=== PATIENT | female | born 1995 | race Caucasian/White ===

== ENCOUNTER 2021-03-15 00:17 | Emergency (ER) | payer OTHER ==
[2021-03-15] MEDS ORDERED: Acetaminophen/HYDROcodone 325-5 MG Tab PO ONE (00:18)
--- NOTE | 2021-03-15 00:29 | EDM.PDOC ---
ED HPI GENERAL MEDICAL PROBLEM - General Stated Complaint: STOMACH PAIN Time Seen by Provider: 03/15/21 00:29 Source of Information: Reports: Patient History Limitations: Reports: No Limitations - History of Present Illness INITIAL COMMENTS - FREE TEXT/NARRATIVE: Patient comes emergency department today with complaints of abdominal pain. This patient who has not had any surgeries in her abdomen in the past has had epigastric bandlike abdominal pain since Saturday. She had a rather hard bowel movement on Saturday. She has been taking some stool softeners and laxatives and has had multiple bowel movements including about 5 today. She is still passing gas although she still has this pain primarily in the epigastric and the right upper quadrant the kind of comes and goes but she does notice that it gets worse when she eats. She got very nauseated and had more pain after eating tonight and actually made herself vomit to see if it would help her pain. She has had no hematochezia the last couple of days. She has no hematuria dysuria or urinary frequency. No black or tarry stools. She has not had any indigestion or bloating sensation the past few days. Her pain comes and goes on its own and seems to be worse when she eats. Abdomen Pain Score (Numeric/FACES): 4 - Related Data Allergies Allergy/AdvReac Type Severity Reaction Status Date / Time sulfamethoxazole Allergy Other Verified 03/15/21 00:34 [From Bactrim] trimethoprim [From Bactrim] Allergy Other Verified 03/15/21 00:34 ED ROS GENERAL - Review of Systems Review Of Systems: Comprehensive ROS is negative, except as noted in HPI. ED EXAM, GI/ABD - Physical Exam Exam: See Below Exam Limited By: No Limitations General Appearance: Alert, WD/WN, No Apparent Distress Neck: Normal Inspection Respiratory/Chest: No Respiratory Distress, Lungs Clear, Normal Breath Sounds, No Accessory Muscle Use, Chest Non-Tender Cardiovascular: Normal Peripheral Pulses, Regular Rate, Rhythm GI/Abdominal Exam: Normal Bowel Sounds, Soft, Guarding (She has guarding to the right upper quadrant with a positive Powell sign.), Other (Negative McBurney sign. No distention of the abdomen. Soft.). No: Rigid, Rebound, Hepatomegaly, Splenomegaly Back Exam: Normal Inspection, Full Range of Motion Extremities: Normal Inspection, Normal Range of Motion, Non-Tender, No Pedal Edema, Normal Capillary Refill Neurological: Alert, Oriented, Normal Cognition, No Motor/Sensory Deficits Psychiatric: Normal Affect, Normal Mood Skin Exam: Warm, Dry, Intact, Normal Color, No Rash Course - Vital Signs Last Recorded V/S: Last Vital Signs Temp 97.2 F 03/15/21 00:32 Pulse 92 03/15/21 01:22 Resp 18 03/15/21 01:22 BP 129/87 03/15/21 01:22 Pulse Ox 98 03/15/21 01:22 - Orders/Labs/Meds Orders: Active Orders 24 hr Category Date Time Status Peripheral IV Care [RC] . DIRECTED Care 03/15/21 00:35 Active Sodium Chloride 0.9% [Saline Flush] Med 03/15/21 00:35 Active 10 ml FLUSH ASDIRECTED PRN Peripheral IV Insertion Adult [OM.PC] Stat Oth 03/15/21 00:34 Ordered Medication Orders Sodium Chloride (Sodium Chloride 0.9% 10 Ml Syringe) 10 ml FLUSH ASDIRECTED PRN PRN Reason: Keep Vein Open Last Admin: 03/15/21 01:18 Dose: 10 ml Documented by: KIM Labs: Laboratory Tests 03/15/21 03/15/21 03/15/21 Range/Units 00:40 00:40 00:44 WBC 15.1 H (5.0-10.0) 10^3/uL RBC 4.67 (4.2-5.4) 10^6/uL Hgb 13.1 (12.0-16.0) g/dL Hct 40.2 (37.0-47.0) % MCV 86.1 (80-100) fL MCH 28.1 (27.0-34.0) pg MCHC 32.6 L (33.0-35.0) g/dL Plt Count 441 (150-450) 10^3/uL Neut % (Auto) 79.6 H (42.2-75.2) % Lymph % (Auto) 14.8 L (20.5-50.1) % Mccreary % (Auto) 5.4 (2-8) % Eos % (Auto) 0.1 L (1.0-3.0) % Baso % (Auto) 0.1 (0.0-1.0) % Sodium (136-145) mmol/L Potassium (3.5-5.1) mmol/L Chloride (98-107) mmol/L Carbon Dioxide (21-32) mmol/L Anion Gap (7-13) mEq/L BUN (7-18) mg/dL Creatinine (0.55-1.02) mg/dL Est Cr Clr Drug Dosing mL/min Estimated GFR (MDRD) BUN/Creatinine Ratio (No establ ref range) Glucose (70-99) mg/dL Lactic Acid (0.4-2.0) mmol/L Calcium (8.5-10.1) mg/dL Total Bilirubin (0.2-1.0) mg/dL AST (15-37) U/L ALT (14-59) U/L Alkaline Phosphatase (46-116) U/L C-Reactive Protein (0.0-0.9) mg/dL Total Protein (6.4-8.2) g/dL Albumin (3.4-5.0) g/dL Globulin Albumin/Globulin Ratio Lipase (73-393) U/L Urine Color Yellow (YELLOW) Urine Appearance Slightly cloudy (CLEAR) Urine pH 6.5 (5.0-9.0) Ur Specific [place] 1.015 (1.005-1.030) Urine Protein Negative (NEGATIVE) Urine Glucose (UA) Negative (NEGATIVE) Urine Ketones 40 H (NEGATIVE) Urine Occult Blood Trace-intact H (NEGATIVE) Urine Nitrite Negative (NEGATIVE) Urine Bilirubin Negative (NEGATIVE) Urine Urobilinogen 0.2 (0.2-1.0) mg/dL Ur Leukocyte Esterase Negative (NEGATIVE) Urine RBC 0-5 (0-5) /HPF Urine WBC 0-5 (0-5/HPF) /HPF Ur Epithelial Cells Rare (NOT SEEN) /HPF Urine Bacteria Rare (0-FEW/HPF) /HPF Urine HCG, Qual Negative 03/15/21 03/15/21 Range/Units 00:44 00:44 WBC (5.0-10.0) 10^3/uL RBC (4.2-5.4) 10^6/uL Hgb (12.0-16.0) g/dL Hct (37.0-47.0) % MCV (80-100) fL MCH (27.0-34.0) pg MCHC (33.0-35.0) g/dL Plt Count (150-450) 10^3/uL Neut % (Auto) (42.2-75.2) % Lymph % (Auto) (20.5-50.1) % Mccreary % (Auto) (2-8) % Eos % (Auto) (1.0-3.0) % Baso % (Auto) (0.0-1.0) % Sodium 137 (136-145) mmol/L Potassium 3.8 (3.5-5.1) mmol/L Chloride 99 (98-107) mmol/L Carbon Dioxide 25 (21-32) mmol/L Anion Gap 16.8 H (7-13) mEq/L BUN 6 L (7-18) mg/dL Creatinine 0.77 (0.55-1.02) mg/dL Est Cr Clr Drug Dosing 95.61 mL/min Estimated GFR (MDRD) > 60 BUN/Creatinine Ratio 7.8 (No establ ref range) Glucose 126 H (70-99) mg/dL Lactic Acid 0.9 (0.4-2.0) mmol/L Calcium 8.8 (8.5-10.1) mg/dL Total Bilirubin 0.5 (0.2-1.0) mg/dL AST 14 L (15-37) U/L ALT 27 (14-59) U/L Alkaline Phosphatase 107 (46-116) U/L C-Reactive Protein 8.1 H (0.0-0.9) mg/dL Total Protein 8.2 (6.4-8.2) g/dL Albumin 3.4 (3.4-5.0) g/dL Globulin 4.8 Albumin/Globulin Ratio 0.7 Lipase 77 (73-393) U/L Urine Color (YELLOW) Urine Appearance (CLEAR) Urine pH (5.0-9.0) Ur Specific [place] (1.005-1.030) Urine Protein (NEGATIVE) Urine Glucose (UA) (NEGATIVE) Urine Ketones (NEGATIVE) Urine Occult Blood (NEGATIVE) Urine Nitrite (NEGATIVE) Urine Bilirubin (NEGATIVE) Urine Urobilinogen (0.2-1.0) mg/dL Ur Leukocyte Esterase (NEGATIVE) Urine RBC (0-5) /HPF Urine WBC (0-5/HPF) /HPF Ur Epithelial Cells (NOT SEEN) /HPF Urine Bacteria (0-FEW/HPF) /HPF Urine HCG, Qual Meds: Medications Generic Name Dose Route Start Last Admin Trade Name Nadia PRN Reason Stop Dose Admin Sodium Chloride 10 ml 03/15/21 00:35 03/15/21 01:18 Sodium Chloride 0.9% 10 Ml Syringe FLUSH 10 ml ASDIRECTED PRN Administration Keep Vein Open Discontinued Medications Generic Name Dose Route Start Last Admin Trade Name Nadia PRN Reason Stop Dose Admin Hydromorphone HCl 0.5 mg 03/15/21 00:35 03/15/21 00:54 Hydromorphone 0.5 Mg/0.5 Ml Syringe IVPUSH 03/15/21 00:36 0.5 mg ONETIME ONE Administration Hydromorphone HCl 1 mg 03/15/21 01:34 03/15/21 01:40 Hydromorphone 1 Mg/Ml Syringe IVPUSH 03/15/21 01:35 1 mg ONETIME ONE Administration Lactated Ringer's 1,000 mls @ 1,000 mls/hr 03/15/21 00:35 03/15/21 00:52 Ringers, Lactated IV 03/15/21 01:34 1,000 mls/hr .BOLUS ONE Administration Ondansetron HCl 4 mg 03/15/21 00:35 03/15/21 00:50 Ondansetron 4 Mg/2 Ml Sdv IV 03/15/21 00:36 4 mg ONETIME ONE Administration - Re-Assessments/Exams Free Text/Narrative Re-Assessment/Exam: 03/15/21 00:38 IV was established labs are drawn. Urine pending. Dilaudid 0.5 mg IV push. Zofran 4 mg IV push. LR 1 L wide open. CBC with a white blood cell count of 15.1, normal hemoglobin platelet. Mild elevation of her neutrophil count at 79.6, CMP anion gap 16.8 with a normal creatinine glucose 126 normal T bili at 0.5 AST low at 14 ALT 27 Lipase normal at 77. CRP 8.1. Urinalysis with some ketones and a trace of blood otherwise unremarkable. Her hCG urine is negative. Her pain was much improved after the above therapy. Bedside POCUS completed and reviewed extemporaneously by myself with no gallbladder distention. Possibly a stone in the neck. [place] appear normal. No pericystic fluid. Common bile duct is unable to be identified. There is quite a bit of bowel gas in the abdomen as well. I really feel by exam and HPI that this is biliarly colic. I see no signs by lab of biliary obstruction and no signs of pericystic fluid concerning for acute cholecystitis although this is my extemporaneous review of the US. I did offer at CT scan to see if there was other pathology although I feel this is clearly biliary colic and will have her contact her PCP tomorrow and get an ULtrasound and stay NPO tonight. She does not want a CT and okay with the plan to follow up in the clinic tomorrow with an ultrasound. Reexamination of the abdomen shows a soft nontender abdomen. Subjectively her pain is completely resolved. Discharge directions as below are explained to the patient she was comfortable with this plan and her questions were answered. Departure - Departure Time of Disposition: 02:12 Disposition: Home, Self-Care 01 Clinical Impression: Biliary colic Abdominal pain Qualifiers: Abdominal location: upper abdomen, unspecified Qualified Code(s): R10.10 - Upper abdominal pain, unspecified - Discharge Information Instructions: Biliary Colic, Adult, Pain Medicine Instructions, [id number] Forms: ED Department Discharge Additional Instructions: Home. Nothing to eat or drink until Ultrasound at [facility] Tomorrow. Tylenol and or Ibuprofen as needed for pain. If pain not controlled with above [place] 1-2 tabs every 4-6 hrs with food as needed for pain. Caution sedation. 4 dispensed from the ED and RX given to the patient #[id number]. Contact [facility] clinic right away in the morning for an Ultrasound the order has been written and given to you for tomorrow. Follow up with Dr. Quintanilla after the Ultrasound. Return to the ED if new or worsening symptoms. Sepsis Event Note (ED) - Focused Exam Vital Signs: Vital Signs Temp Pulse Resp BP Pulse Ox 03/15/21 01:22 92 18 129/87 98 03/15/21 00:32 97.2 F 113 H 18 150/80 H 97 - My Orders Last 24 Hours: My Active Orders 03/15/21 00:34 Peripheral IV Insertion Adult [OM.PC] Stat 03/15/21 00:35 Peripheral IV Care [RC] . DIRECTED Sodium Chloride 0.9% [Saline Flush] 10 ml FLUSH ASDIRECTED PRN - Assessment/Plan Last 24 Hours: My Active Orders 03/15/21 00:34 Peripheral IV Insertion Adult [OM.PC] Stat 03/15/21 00:35 Peripheral IV Care [RC] . DIRECTED Sodium Chloride 0.9% [Saline Flush] 10 ml FLUSH ASDIRECTED PRN
[2021-03-15] MEDS ORDERED: Sodium Chloride 0.9% 10 ML Syringe FLUSH PRN (00:35)
[2021-03-15] MEDS ORDERED: Ondansetron 4 MG/2 ML SDV IV ONE (00:35)
[2021-03-15] MEDS ORDERED: Lactated Ringers 1,000 ML IV ONE (00:35)
[2021-03-15] MEDS ORDERED: HYDROmorphone 0.5 MG/0.5 ML Syringe IVPUSH ONE (00:35)
[2021-03-15 01:09] LABS: ANION GAP 16.8 mEq/L (7-13); CHLORIDE,CL 99 mmol/L (98-107); SODIUM,NA 137 mmol/L (136-145)
[2021-03-15] MEDS ORDERED: HYDROmorphone 1 MG/ML Syringe IVPUSH ONE (01:34)
[2021-03-15] MEDS ORDERED: Acetaminophen/HYDROcodone 325-5 MG Tab ONE (02:28)
== END 2021-03-15 02:40 | disposition home or self-care (01) ==
LOC: DL.ED 00:17
DX: K80.50 Calculus of bile duct without cholangitis or cholecystitis without obstruction (principal); Z88.1 Allergy status to other antibiotic agents
CPT/HCPCS: 36415; 80053; 81001; 81025; 83605; 83690; 85025; 86140; 96374; 96375; 96376; 99284; A9270; J1170; J2405; J7120

== ENCOUNTER 2023-11-10 22:43 | Emergency (ER) | payer OTHER ==
[2023-11-10 23:49] LABS: BASOPHILS PERCENT AUTO 0.2 % (0.0-1.0); EOSINOPHILS PERCENT AUTO 2.2 % (1.0-3.0); HEMATOCRIT 30.7 % (37.0-47.0); HEMOGLOBIN 9.8 g/dL (12.0-16.0); LYMPHOCYTES PERCENT AUTO 31.1 % (20.5-50.1); MEAN CORPUSCULAR HEMOGLOBIN 28.7 pg (27.0-34.0); MEAN CORPUSCULAR HGB CONC 31.9 g/dL (33.0-35.0); MONOCYTES PERCENT AUTO 6.5 % (2-8); PLATELET COUNT,PLT 372 10^3/uL (150-450); RED BLOOD CELL COUNT 3.41 10^6/uL (4.2-5.4); WHITE BLOOD CELL COUNT,WBC 8.1 10^3/uL (5.0-10.0)
[2023-11-10 23:57] LABS: APPEARANCE,URINE CLEAR (CLEAR); BILIRUBIN,URINE NEGATIVE (NEGATIVE); COLOR,URINE YELLOW (YELLOW); GLUCOSE,URINE NEGATIVE (NEGATIVE); KETONES,URINE NEGATIVE (NEGATIVE); LEUKOCYTE ESTERASE,URINE NEGATIVE (NEGATIVE); NITRITE,URINE NEGATIVE (NEGATIVE); OCCULT BLOOD,URINE SMALL (NEGATIVE); PROTEIN,URINE NEGATIVE (NEGATIVE); UROBILINOGEN,URINE 0.2 mg/dL (0.2-1.0)
[2023-11-11 00:09] LABS: A/G RATIO 0.6; ALBUMIN 2.5 g/dL (3.4-5.0); ANION GAP 13.7 mEq/L (7-13); BILIRUBIN TOTAL 0.2 mg/dL (0.2-1.0); BUN/CREATININE RATIO 23.1 (No establ ref range); CREATININE 0.65 mg/dL (0.55-1.02); EST CRCL DRUG DOSING (CG) 111.27 mL/min; MAGNESIUM 1.4 mg/dL (1.8-2.4); POTASSIUM,K 3.7 mmol/L (3.5-5.1); PROTEIN TOTAL,TP 6.7 g/dL (6.4-8.2)
[2023-11-11 00:11] LABS: BACTERIA,URINE RARE /HPF (0-FEW/HPF); EPITHELIAL CELLS,URINE OCCASIONAL /HPF (NOT SEEN); MUCUS,URINE RARE /LPF (NOT SEEN); RBC,URINE 0-5 /HPF (0-5); WBC,URINE NOT SEEN /HPF (0-5/HPF)
[2023-11-11 00:12] LABS: INR 0.9 (0.9-1.2); PROTHROMBIN TIME 9.7 SEC (9.0-12.0)
[2023-11-11 00:35] LABS: CREATININE,URINE RAND 22.82 mg/dL (No establ ref range); PROTEIN,URINE RANDOM < 6.0 mg/dL (0.0-11.9)
[2023-11-11] MEDS: Magnesium Sulfate/Water 2 GM in Premix Bag 1 BAG IV ONE (01:30)
[2023-11-11] MEDS: Ibuprofen 600 MG Tab PO ONE (01:46)
[2023-11-11] MEDS: Labetalol 100 MG Tab PO ONE ×2 (01:47→03:05)
[2023-11-11] MEDS: Magnesium Sulfate/Water 4 GM in Premix Bag 1 BAG IV ONE (02:15)
[2023-11-11] MEDS: Magnesium Sulfate/Water 50 ML ONE (02:15)
== END 2023-11-11 03:31 | disposition home or self-care (01) ==
LOC: DL.ED 22:43
DX: O14.95 Unspecified pre-eclampsia, complicating the puerperium (principal); R03.0 Elevated blood-pressure reading, without diagnosis of hypertension; E83.42 Hypomagnesemia; Z88.2 Allergy status to sulfonamides; Z88.8 Allergy status to other drugs, medicaments and biological substances; Z79.899 Other long term (current) drug therapy; Z79.890 Hormone replacement therapy
CPT/HCPCS: 36415; 80053; 81001; 82570; 83615; 83735; 84156; 84550; 85025; 85610; 93005; 93010; 96374; 99284; 99285; A9270; J3475